=== PATIENT | female | born 1970 | race Caucasian/White ===

== ENCOUNTER 2024-09-05 11:42 | Outpatient (REF) | payer BC, SELFPAY ==
[2024-09-05 12:18] LABS: Hematocrit 37.8 % (37.0-47.0); Hemoglobin 12.2 g/dL (12.0-16.0); Mean Corp Hgb Conc. 32.3 g/dL (33.0-37.0); Mean Corpuscular Hgb 28.5 pg (27.0-31.0); Mean Corpuscular Volume 88.3 fL (81.0-99.0); Mean Platelet Volume 11.3 fL (7.4-10.4); Platelet Count 243 10^3/uL (130-400); Red Blood Cell Count 4.28 10^6/uL (4.20-5.40); Red Cell Dist. Width 13.7 % (11.5-14.5); White Blood Cell Count 5.8 10^3/uL (4.8-10.8)
[2024-09-05 12:24] LABS: INR 0.95
[2024-09-05 12:50] VITALS: BP 139/79; BP_SYST 68
[2024-09-05 13:33] VITALS: BP 137/79; BP_SYST 60
[2024-09-05 14:00] VITALS: BP 127/77; BP_SYST 61
[2024-09-05 14:24] VITALS: BP 126/80
[2024-09-05 15:11] LABS: Spinal Fluid Glucose 55 mg/dl (40-70)
[2024-09-05 15:20] VITALS: BP 138/88
[2024-09-05 15:59] LABS: CSF Tube # 1
[2024-09-05 16:00] LABS: CSF Clarity Clear; CSF Color Colorless; White Cell Count/CSF 15 mm^3 (0-5)
[2024-09-05 16:01] LABS: Red Cell Count/CSF 277 mm^3
[2024-09-05 16:03] LABS: CSF Color Colorless; CSF Tube # 4; CSF Tube # Clarity Clear
[2024-09-05 16:04] LABS: Red Cell Count/CSF 2 mm^3; White Blood Cell Count/CSF 4 mm^3 (0-5)
[2024-09-05 16:15] LABS: Spinal Fluid Protein 65 mg/dl (12-60)
[2024-09-05 17:10] LABS: Spinal Fluid Lymphocytes 100 %
== END 2024-09-05 15:30 | disposition home or self-care (01) ==
LOC: RADI 11:42
PROVIDERS: ATTENDING PHYSICIAN Specialist; REFERRING PHYSICIAN Physician Assistant
DX: R51.9 Headache, unspecified (principal); R53.1 Weakness
CPT/HCPCS: 36415; 62328; 82040; 82042; 82164; 82784; 82945; 83873; 83916; 84157; 85027; 85610; 86592; 87476; 89051

== ENCOUNTER 2024-09-23 07:42 | Outpatient (RCR) | payer BC, SELFPAY ==
[2024-09-19] MEDS: SOLU-MEDROL 258 MG IV (08:06)
[2024-09-19 08:11] VITALS: BP 141/74
[2024-09-19 10:30] VITALS: BP 143/82
[2024-09-20 08:25] VITALS: BP 167/89
[2024-09-20] MEDS: SOLU-MEDROL 258 MG IV (08:32)
[2024-09-20 10:25] VITALS: BP 123/70
[2024-09-21 09:00] VITALS: BP 137/79
[2024-09-21] MEDS: SOLU-MEDROL 258 MG IV (09:05)
[2024-09-22 08:03] VITALS: BP 158/83
[2024-09-22] MEDS: SOLU-MEDROL 258 MG IV (08:04)
[2024-09-22 09:50] VITALS: BP 170/94
[2024-09-23] MEDS: SOLU-MEDROL 258 MG IV (08:45)
[2024-09-23 08:52] VITALS: BP 171/94
[2024-09-23 10:40] VITALS: BP 175/94
--- NOTE | 2024-09-23 11:02 | PTCARENOTE ---
Pt completed course of IV Solumedrol as directed Bp BP remains elevated at 175/94. Pt has appointment with PCP today at noon
== END 2024-10-17 23:59 | disposition home or self-care (01) ==
LOC: OID 07:42
PROVIDERS: ATTENDING PHYSICIAN Specialist; FAMILY PHYSICIAN Family Medicine
DX: G51.0 Bell's palsy (principal); G35 Multiple sclerosis
CPT/HCPCS: 96365; 96366

== ENCOUNTER → 2024-11-01 13:07 | Outpatient (REF) | payer BC, SELFPAY | LOC: PAVMRI 13:07 | PROVIDERS: ATTENDING PHYSICIAN Specialist | DX: G35 Multiple sclerosis (principal) | CPT/HCPCS: 72156; 72157; A9575 ==